=== PATIENT | male | born 1955 | race Caucasian/White ===

== ENCOUNTER 2017-03-17 09:50 | Emergency (ER) | payer BC ==
[~2017-03-17] VITALS: Ht 182.9 cm; Wt 95.2 kg
[~2017-03-17 09:50] MED LIST: FLAX PO; LIDO4TS50 TOP; Norco 5-325 Ta1 EACH PO; VALERIAN ROOT PO; Zovirax800 MG PO; [UNRECOGNIZED DRUG - OTHER] PO
[2017-03-17] MEDS ORDERED: Cheratussin AC118 ML PO (10:21)
[2017-03-17] MEDS ORDERED: IBUP800 PO (10:21)
== END 2017-03-17 10:27 | disposition home or self-care (01) ==
LOC: ER 09:50
DX: J06.9 Acute upper respiratory infection, unspecified (principal); Z20.828 Contact with and (suspected) exposure to other viral communicable diseases; Z88.8 Allergy status to other drugs, medicaments and biological substances; Z90.89 Acquired absence of other organs; Z87.891 Personal history of nicotine dependence; Z96.652 Presence of left artificial knee joint
CPT/HCPCS: 99283